=== PATIENT | male | born 1990 | race African-American/Black ===

== ENCOUNTER 2017-02-05 17:44 | Emergency (ER) | payer MEDICAID ==
[2017-02-05] MEDS ORDERED: cefTRIAXone 1,000 MG VIAL IM ONE (17:51)
--- NOTE | 2017-02-05 18:20 | EDM.PDOC ---
ED HPI GENERAL MEDICAL PROBLEM - General Chief Complaint: Upper Extremity Injury/Pain Stated Complaint: INJ L ARM Time Seen by Provider: 02/05/17 18:01 Source of Information: Reports: Patient, Family History Limitations: Reports: No Limitations - History of Present Illness INITIAL COMMENTS - FREE TEXT/NARRATIVE: 26 years old black male come to the ed after he injured his left wrist while playing football at his college. Pt has pain at his left ant wrist, with limited ROM due to pain. No other acute medical issues. Onset: Today Onset Date: 02/05/17 Onset Time: 17:30 Duration: Minutes: Location: Reports: Upper Extremity, Left Quality: Reports: Ache, Burning, Dull, Pressure Severity: Moderate Improves with: Reports: Cold Therapy, Rest Worsens with: Reports: Movement Context: Reports: Activity (playing foot ball) Associated Symptoms: Reports: No Other Symptoms Treatments W[employer]: Reports: Splint(s) Left Lower Arm Pain Score (Numeric/FACES): 4 - Related Data Allergies Allergy/AdvReac Type Severity Reaction Status Date / Time No Known Allergies Allergy Verified 02/05/17 18:01 Home Meds: Home Meds NK [No Known Home Meds] 02/05/17 [History] Past Medical History - Past Health History Medical/Surgical History: Denies Medical/Surgical History Social & Family History - Family History Family Medical History: Noncontributory - Tobacco Use Smoking Status *Q: Never Smoker Second Hand Smoke Exposure: No - Caffeine Use Caffeine Use: Reports: None - Recreational Drug Use Recreational Drug Use: No Review of Systems - Review of Systems Review Of Systems: See Below Constitutional: Reports: No Symptoms Eyes: Reports: No Symptoms Ears: Reports: No Symptoms Nose: Reports: No Symptoms Mouth/Throat: Reports: No Symptoms Respiratory: Reports: No Symptoms Cardiovascular: Reports: No Symptoms GI/Abdominal: Reports: No Symptoms Genitourinary: Reports: No Symptoms Musculoskeletal: Reports: Muscle Pain (wrist) Skin: Reports: No Symptoms Neurological: Reports: No Symptoms Psychiatric: Reports: No Symptoms ED EXAM, GENERAL - Physical Exam Exam: See Below Exam Limited By: No Limitations General Appearance: Alert, WD/WN, Mild Distress Eye Exam: Bilateral Eye: Normal Inspection Ears: Normal External Exam Ear Exam: Bilateral Ear: Auricle Normal Nose: Normal Inspection, Normal Mucosa Throat/Mouth: Normal Inspection, Normal Lips, Normal Teeth Head: Atraumatic, Normocephalic Neck: Normal Inspection, Supple, Non-Tender Respiratory/Chest: No Respiratory Distress, Lungs Clear, Normal Breath Sounds Cardiovascular: Normal Peripheral Pulses, Regular Rate, Rhythm Peripheral Pulses: 1+: Radial (L), Radial (R) GI/Abdominal: Normal Bowel Sounds, Soft, Non-Tender, No Organomegaly (Male) Exam: Deferred Rectal (Males) Exam: Deferred Back Exam: Normal Inspection, Full Range of Motion Extremities: Normal Inspection, Other (tender left ant wrist.) Neurological: Alert, Oriented, CN II-XII Intact, Normal Cognition, Normal Gait Psychiatric: Normal Affect, Normal Mood Skin Exam: Warm, Dry, Intact, Normal Color, No Rash Lymphatic: No Adenopathy Course - Vital Signs Text/Narrative:: 26 years old black male come to the ed after he injured his left wrist while playing football at his college. Pt has pain at his left ant wrist, with limited ROM due to pain. No other acute medical issues. PE: Lender left ant wrist, no open wound imaging: Left wrist: NAD read by Dr. Do ([facility]) Impression: Left wrist sprain. Tx: Ice, Motrin, valcro splint. Reexam: improved Plan: D/C with instructions Last Recorded V/S: Last Vital Signs Temp 35.9 C 02/05/17 18:01 Pulse 62 02/05/17 18:55 Resp 14 02/05/17 18:55 BP 131/67 02/05/17 18:55 Pulse Ox 100 02/05/17 18:55 - Orders/Labs/Meds Orders: Active Orders 24 hr Category Date Time Status Hand Comp Min 3V Lt [CR] Stat Exams 02/05/17 18:13 Taken Wrist Comp Min 3V Lt [CR] Stat Exams 02/05/17 18:12 Taken Meds: Medications Discontinued Medications Generic Name Dose Route Start Last Admin Trade Name Freq PRN Reason Stop Dose Admin Ceftriaxone Sodium 1,000 mg 02/05/17 17:51 02/05/17 18:34 Rocephin IM 02/05/17 17:52 Not Given ONETIME ONE Departure - Departure Time of Disposition: 18:47 Disposition: Home, Self-Care 01 Condition: Good Clinical Impression: Left wrist sprain Qualifiers: Encounter type: initial encounter Qualified Code(s): S63.502A - Unspecified sprain of left wrist, initial encounter - Discharge Information Referrals: PCP,None [Primary Care Provider] - Forms: ED Department Discharge Additional Instructions: Rest, Ice and elevation, Motrin for pain and healing. Please wear a valcro splint at your left wrist for comfort. Please f/u, come back to the ed if the symptoms get worse acutely - My Orders Last 24 Hours: My Active Orders 02/05/17 18:12 Wrist Comp Min 3V Lt [CR] Stat 02/05/17 18:13 Hand Comp Min 3V Lt [CR] Stat - Assessment/Plan Last 24 Hours: My Active Orders 02/05/17 18:12 Wrist Comp Min 3V Lt [CR] Stat 02/05/17 18:13 Hand Comp Min 3V Lt [CR] Stat
[2017-02-05 18:57] VITALS: BP 131/67
--- NOTE | 2017-02-08 16:41 | CR ---
INDICATION: Trauma. LEFT WRIST: Three views of the left wrist revealed no evidence of an acute fracture, dislocation, or other significant bone or joint abnormality. IMPRESSION: Normal left wrist. MTDD
--- NOTE | 2017-02-08 16:41 | CR ---
INDICATION: Trauma. LEFT HAND: Three views of the left hand revealed no evidence of an acute fracture, dislocation, or other significant bone or joint abnormality. IMPRESSION: Normal left hand. MTDD
== END 2017-02-05 18:55 | disposition home or self-care (01) ==
LOC: EDBD → FB.ED 17:44
DX: S63.502A Unspecified sprain of left wrist, initial encounter (principal); X50.1XXA Overexertion from prolonged static or awkward postures, initial encounter; Y92.321 Football field as the place of occurrence of the external cause
CPT/HCPCS: 73110-LT; 73130-LT; 99283